=== PATIENT | male | born 1940 | race Caucasian/White ===

== ENCOUNTER 2019-11-27 13:59 | Outpatient (CLI) | payer OTHER ==
[~2019-11-27] VITALS: Ht 162.6 cm; Wt 73.5 kg
[2019-11-27] MEDS ORDERED: JANUVIA50 MG (14:06)
[2019-11-27] MEDS ORDERED: ZESTRIL2.5 MG (14:06)
[2019-11-27] MEDS ORDERED: ATORVASTATIN CA10 MG (14:07)
[2019-11-27] MEDS ORDERED: ECOTRIN81 MG (14:07)
== END 2019-11-27 14:30 | disposition home or self-care (01) ==
LOC: OFIC 805 13:59
PROVIDERS: ATTEND Otolaryngology
DX: R49.0 Dysphonia (principal); J38.3 Other diseases of vocal cords; F45.8 Other somatoform disorders